=== PATIENT | female | born 1970 | race Caucasian/White ===

== ENCOUNTER 2018-08-11 16:45 | Emergency (ER) | payer OTHER ==
[2018-08-11 17:01] VITALS: BP 142/86
--- NOTE | 2018-08-11 18:08 | UC ---
Lower Extremity/Ankle HPI - HPI Summary HPI Summary: Ms. Jenkins developed a sore swollen area below her right knee on Tuesday after flying on Tuesday. It's mildly painful and she thought it would've gone away by now but it has not. - History of Current Complaint Chief Complaint: UCLowerExtremity Stated Complaint: VEIN IN LEG IS SWOLLEN Time Seen by Provider: 08/11/18 17:09 Hx Obtained From: Patient Onset/Duration: Gradual Onset Severity Initially: Mild Severity Currently: Mild Pain Intensity: 1 Aggravating Factor(s): Standing Alleviating Factor(s): Elevation Able to Bear Weight: Yes - Allergies/Home Medications Allergies/Adverse Reactions: Allergies Allergy/AdvReac Type Severity Reaction Status Date / Time No Known Allergies Allergy Verified 08/11/18 17:01 PMH/Surg Hx/FS Hx/Imm Hx Previously Healthy: Yes - Surgical History Surgical History: None - Social History Alcohol Use: Weekly Substance Use Type: None Smoking Status (MU): Never Smoked Tobacco Review of Systems All Other Systems Reviewed And Are Negative: Yes Physical Exam - Summary Physical Exam Summary: She is nontoxic in appearance with stable vital signs. She has a small erythematous soft swollen area below her right knee. Triage Information Reviewed: Yes Appearance: Well-Appearing Vital Signs: Initial Vital Signs Temp 100 F 08/11/18 16:57 Pulse 103 08/11/18 16:57 Resp 18 08/11/18 16:57 BP 142/86 08/11/18 16:57 Pulse Ox 98 08/11/18 16:57 Vital Signs Reviewed: Yes Respiratory Exam: Normal Cardiovascular Exam: Normal Skin Exam: Other - A soft mildly erythematous, mildly tender area of swelling distal to the right knee. Diagnostics - Radiology Soft Tissue Ultrasound Radiology Interpretation Completed By: Radiologist Summary of Radiographic Findings: Superficial thrombophlebitis Lower Extremity Course/Dx - Course Course Of Treatment: Clinically this appeared to be a superficial thrombophlebitis. Ultrasound was obtained to make sure there was no abscess. There is no evidence for anything in the deep veins.. - Differential Dx/Diagnosis Provider Diagnosis: Superficial thrombophlebitis Discharge - Sign-Out/Discharge Documenting (check all that apply): Patient Departure All imaging exams completed and their final reports reviewed: Yes - Discharge Plan Condition: Stable Disposition: HOME Patient Education Materials: Superficial Thrombophlebitis (ED) Referrals: No Primary Care Phys,NOPCP [Primary Care Provider] - - Billing Disposition and Condition Condition: STABLE Disposition: Home
== END 2018-08-11 18:19 | disposition home or self-care (01) ==
LOC: UCEAST 16:45
DX: I80.01 Phlebitis and thrombophlebitis of superficial vessels of right lower extremity (principal)
CPT/HCPCS: 99212; G0463